=== PATIENT | female | born 1950 | race Caucasian/White ===

== ENCOUNTER 2017-08-09 15:58 | Emergency (ER) | payer MEDICARE ==
--- NOTE | 2017-08-09 17:28 | ED ---
General Adult HPI - General Chief complaint: Fall Stated complaint: Fell Time Seen by Provider: 08/09/17 17:00 Source: patient, RN notes reviewed Mode of arrival: wheelchair Limitations: no limitations - History of Present Illness Initial comments: 66-year-old female presents to the emergency department for a chief complaint of head injury and left shoulder injury 2 days ago. Patient slipped and fell backwards hitting her head on tile. Patient states she has a headache. Patient denies loss of consciousness, visual changes, nausea or vomiting. She states she thinks she has a concussion. Patient states she also has right shoulder pain. Patient denies neck pain. Patient denies any other injuries. Patient has no other complaints at this time including shortness of breath, chest pain, abdominal pain, nausea or vomiting, headache, or visual changes. - Related Data Home Medications Medication Instructions Recorded Confirmed Aspirin EC [Ecotrin] 325 mg PO DAILY PRN 08/09/17 08/09/17 Calcium Carbonate [Calcium] 600 mg PO DAILY 08/09/17 08/09/17 Cholecalciferol [Vitamin D3] 1,000 unit PO DAILY 08/09/17 08/09/17 Cyanocobalamin (Vitamin B-12) 1,000 mcg PO DAILY 08/09/17 08/09/17 [Vitamin B-12] Ibuprofen [Motrin] 800 mg PO Q6H PRN 08/09/17 08/09/17 Magnesium 200 mg PO DAILY 08/09/17 08/09/17 Milk Thistle 150 mg PO DAILY 08/09/17 08/09/17 Niacin 500 mg PO DAILY 08/09/17 08/09/17 Propranolol HCl 60 mg PO DAILY 08/09/17 08/09/17 Sertraline [Zoloft] 25 mg PO DAILY 08/09/17 08/09/17 Ubidecarenone [Co Q-10] 100 mg PO DAILY 08/09/17 08/09/17 Allergies Allergy/AdvReac Type Severity Reaction Status Date / Time No Known Allergies Allergy Verified 08/09/17 17:10 Review of Systems ROS Statement: Those systems with pertinent positive or pertinent negative responses have been documented in the HPI. ROS Other: All systems not noted in ROS Statement are negative. Past Medical History Past Medical History: Hypertension History of Any Multi-Drug Resistant Organisms: None Reported Past Surgical History: Orthopedic Surgery Additional Past Surgical History / Comment(s): sinus Past Psychological History: Depression Smoking Status: Never smoker Past Alcohol Use History: Daily Past Drug Use History: None Reported General Exam Limitations: no limitations General appearance: alert, in no apparent distress Head exam: Present: normocephalic, other (Patient has a 3 cm x 3 cm hematoma on the left parietal scalp.) Eye exam: Present: normal appearance, PERRL, EOMI. Absent: scleral icterus, conjunctival injection, periorbital swelling ENT exam: Present: normal exam, normal oropharynx (Uvula midline), mucous membranes moist, TM's normal bilaterally (Negative hemotympanum), normal external ear exam Neck exam: Present: normal inspection, full ROM. Absent: tenderness, meningismus, lymphadenopathy Respiratory exam: Present: normal lung sounds bilaterally. Absent: respiratory distress, wheezes, rales, rhonchi, stridor Cardiovascular Exam: Present: regular rate, normal rhythm, normal heart sounds. Absent: systolic murmur, diastolic murmur, rubs, gallop, clicks Extremities exam: Present: other (Negative arm drift. Strength 5 out of 5 in upper and lower extremities bilaterally.) Back exam: Present: normal inspection, full ROM. Absent: tenderness Neurological exam: Present: alert, oriented X3, CN II-XII intact, other (GCS 15) Course Vital Signs 08/09/17 08/09/17 16:24 18:27 Temperature 98.6 F 98.3 F Pulse Rate 53 L 63 Respiratory 18 20 Rate Blood Pressure 180/94 198/97 O2 Sat by Pulse 97 99 Oximetry Medical Decision Making - Medical Decision Making 66-year-old female since to the emergency department for a chief complaint of head injury 2 days ago. Patient fell backwards and hit her head on the tile. She also injured her left shoulder during this time. On exam patient does have some limited range of motion of the left shoulder. Neurovascular intact in the left upper extremity. Patient also has a 3 cm x 3 cm contusion on the left posterior parietal bone. No step-off palpated. No focal neuro deficits on exam. X-ray of the left shoulder shows no fracture or dislocation. 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 Multiple old healed left posterior rib fractures. CT C -spine shows mild spondylitic changes no fracture. CT brain shows cerebral atrophy. No intracranial abnormality. Left parietal scalp hematoma measures up to 14 mm in thickness. No sign of intracranial hemorrhage, mass effect, or midline shift. Patient will be discharged home with return precautions for head injury. Patient was also hypertensive in the emergency department and was given 2.5 of Norvasc. She will follow-up with primary care provider in 1-2 days for this as she has a history of hypertension. She will take Tylenol for pain. She will rest and take it easy for the next couple of days. She will rest ice and elevate the right shoulder. She will follow-up with primary care in 1-2 days. Disposition Clinical Impression: Head injury, Shoulder pain Disposition: HOME SELF-CARE Condition: Good Instructions: Concussion (ED), Head Injury (ED), Shoulder Pain (ED) Additional Instructions: Please monitor for any worsening symptoms such as severe headache, vomiting, confusion and return if these occur. Return if you have any other concerns. Take Tylenol for pain. Try to rest for the next couple days. Follow-up with primary care in 1-2 days. Is patient prescribed a controlled substance at d/c from ED?: No Referrals: Epi Her MD [Primary Care Provider] - 1-2 days Time of Disposition: 18:01
--- NOTE | 2017-08-09 17:43 | CT ---
EXAMINATION TYPE: CT brain [facility] DATE OF EXAM: 08/09/2017 COMPARISON: NONE HISTORY: Fell and hit head yesterday. Hematoma to left parietal area. CT DLP: 1509.6 mGycm Automated exposure control for dose reduction was used. TECHNIQUE: CT scan of the head and cervical spine are performed without contrast. FINDINGS: There is cerebral cortical atrophy. There is no mass effect nor midline shift. There is n o sign of intracranial hemorrhage. There is moderate size scalp hematoma at the left parietal region. These calvarium appears intact. The cervical vertebra show mild straightening. There is anterior spurring at C4-5 C5-6. There is slig ht narrowing of C5-6 disc space. The posterior elements are intact. Facet joints are intact. Skull ba se is intact. There is no evidence of cervical spine fracture. IMPRESSION: Mild spondylotic changes in the cervical spine. No fracture. Cerebral atrophy. No acute intracranial abnormality. Left parietal scalp hematoma measures up to 14 m m in thickness.
--- NOTE | 2017-08-09 17:44 | XR ---
EXAMINATION TYPE: XR shoulder complete LT DATE OF EXAM: 08/09/2017 COMPARISON: NONE HISTORY: Shoulder pain TECHNIQUE: 3 views FINDINGS: I see no fracture nor dislocation. Glenohumeral joint is anatomic. There is minor spurring at the shoulder joint. IMPRESSION: Minimal osteoarthritis. No fracture. Multiple old healed left posterior rib fractures not ed.
[2017-08-09 18:44] VITALS: BP 198/97; PULSE 63; RESP 20; TEMP 98.3
[2017-08-09] MEDS ORDERED: amLODIPine 5 MG TAB PO STA (18:45)
== END 2017-08-09 18:55 | disposition home or self-care (01) ==
LOC: EC 15:58
DX: S00.03XA Contusion of scalp, initial encounter (principal); M19.012 Primary osteoarthritis, left shoulder; M25.511 Pain in right shoulder; I10 Essential (primary) hypertension; F32.9 Major depressive disorder, single episode, unspecified; Z79.82 Long term (current) use of aspirin; Z79.899 Other long term (current) drug therapy; W01.198A Fall on same level from slipping, tripping and stumbling with subsequent striking against other object, initial encounter
CPT/HCPCS: 70450; 72125; 99284